=== PATIENT | female | born 1960 | race American Indian/Alaskan Native ===

== ENCOUNTER 2019-07-01 11:35 | Emergency (ER) | payer OTHER ==
--- NOTE | 2019-07-01 11:55 | Event Note ---
ED Screening Note ED Screening Note: left knee pain states she feels swelling behind the left knee states the pain goes down the left leg PMHx asthma no allergies to meds no recent travel no recent surgery no CP or SOB no hormone use former smoker This initial assessment/diagnostic orders/clinical plan/treatment(s) is/are subject to change based on patients health status, clinical progression and re- assessment by fellow clinical providers in the ED. Further treatment and workup at subsequent clinical providers discretion. Patient/guardian urged not to elope from the ED as their condition may be serious if not clinically assessed and managed. Initial orders include: XR of the left knee, US of the LLE
[2019-07-01 11:57] VITALS: BP 166/78
--- NOTE | 2019-07-01 13:24 | Emergency Department Report ---
ED Lower Extremity HPI - General Chief Complaint: Extremity Problem,Nontraumatic Stated Complaint: KNEE PAIN Time Seen by Provider: 07/01/19 11:53 Source: patient Mode of arrival: Ambulatory Limitations: No Limitations - History of Present Illness Initial Comments: This is a 59-year-old -[place] female who presents to the emergency room with left knee pain for 3 months worsening over the past week. Past medical history of arthritis and asthma. Patient states she is seeing her primary care doctor for similar symptoms and waiting on a referral to pain management. States follow-up appointment is next month but cannot wait the next month due to severe pain and swelling to posterior knee. She reports pain is radiating from left knee to left calf. She denies recent travel, recent injury, paresthesia, or weakness. MD Complaint: knee injury (left knee), leg injury (left leg) Onset/Timin -: week(s) Injury: Knee: Left Type of Injury: unknown Place: home Severity: severe Severity scale (0 -10): 10 Improves With: NSAID Worsens With: movement Associated Symptoms: swelling, ambulatory. denies: snap/pop sensation, numbness, tingling Treatments Prior to Arrival: NSAIDS - Related Data Previous Rx's Medication Instructions Recorded Last Taken Type traMADoL [Ultram 50 MG tab] 50 mg PO Q6HR PRN #12 tablet 07/01/19 Unknown Rx Allergies Allergy/AdvReac Type Severity Reaction Status Date / Time No Known Allergies Allergy Unverified 07/01/19 11:45 ED Review of Systems ROS: Stated complaint: KNEE PAIN Other details as noted in HPI Constitutional: denies: chills, fever Respiratory: denies: cough, shortness of breath, wheezing Cardiovascular: denies: chest pain, palpitations Gastrointestinal: denies: abdominal pain, nausea, diarrhea Musculoskeletal: joint swelling (Left knee), arthralgia (Left knee). denies: back pain Skin: denies: rash, lesions Neurological: denies: headache, weakness, paresthesias Psychiatric: denies: anxiety, depression ED Past Medical Hx - Past Medical History Previous Medical History?: Yes Hx Arthritis: Yes - Surgical History Past Surgical History?: Yes Additional Surgical History: Partial hysterectomy - Social History Smoking Status: Former Smoker Substance Use Type: None - Medications Home Medications: Home Medications Medication Instructions Recorded Confirmed Last Taken Type traMADoL [Ultram 50 MG tab] 50 mg PO Q6HR PRN #12 tablet 07/01/19 Unknown Rx ED Physical Exam - General Limitations: No Limitations General appearance: alert, in no apparent distress - Respiratory Respiratory exam: Present: normal lung sounds bilaterally. Absent: respiratory distress - Cardiovascular Cardiovascular Exam: Present: regular rate, normal rhythm. Absent: systolic murmur, diastolic murmur, rubs, gallop - GI/Abdominal GI/Abdominal exam: Present: soft, normal bowel sounds - Extremities Exam Extremities exam: Present: normal inspection - Expanded Lower Extremity Exam Left Hip exam: Present: normal inspection, full ROM Upper Leg exam: Present: normal inspection, full ROM Knee exam: Present: full ROM (Pain with range of motion), tenderness (Tenderness and swelling to posterior patella), swelling, full knee extension. Absent: abrasion, laceration, ecchymosis, deformity, crepidus, erythema, effusion, pain/laxity with varus Lower Leg exam: Present: normal inspection, full ROM Ankle exam: Present: normal inspection, full ROM Foot/Toe exam: Present: normal inspection, full ROM Neuro vascular tendon exam: Present: no vascular compromise Gait: Positive: observed and normal - Back Exam Back exam: Present: normal inspection - Neurological Exam Neurological exam: Present: alert, oriented X3, normal gait - Psychiatric Psychiatric exam: Present: normal affect, normal mood - Skin Skin exam: Present: warm, dry, intact, normal color. Absent: rash ED Course Vital Signs 07/01/19 11:54 Temperature 98.4 F Pulse Rate 68 Respiratory 18 Rate Blood Pressure 166/78 O2 Sat by Pulse 99 Oximetry ED Lower Extremity MDM - Radiology Data Radiology results: report reviewed XR of left Knee Impression: Mild medial compartment joint space narrowing is identified. No acute osseous findings or bone lesion. A moderate joint effusion extends to the suprapatellar bursa on the lateral view. Duplex Doppler of left lower extremity Impression: No sonographic evidence for DVT in left lower extremity. Popliteal cyst. - Medical Decision Making 59-year-old female complaining of left leg pain and swelling to posterior left knee. Patient is nontoxic appearing and stable. VSS. Workup: x-ray of left knee and duplex doppler of left lower extremity. Given history and exam there is low suspicion for fracture, dislocation, ligament injury, septic arthritis, or gout. X-ray findings of moderate joint effusion extends to the suprapatellar bursa. Duplex Doppler findings of no evidence of DVT, Popliteal cyst. He is to wrap applied to left knee. Start tramadol for pain. Advised to continue taking NSAIDs. Follow-up with PCP within the next week. Given strict return instructions. Patient discharged with prompt follow-up with primary care physician. Critical care attestation.: If time is entered above; I have spent that time in minutes in the direct care of this critically ill patient, excluding procedure time. ED Disposition Clinical Impression: Posterior left knee pain, Knee effusion, left Leg pain Qualifiers: Laterality: left Qualified Code(s): M79.605 - Pain in left leg Disposition: - TO HOME OR SELFCARE Is pt being admited?: No Condition: Stable Instructions: Arthralgia (ED), Osteoarthritis (ED), Knee Effusion (ED), RICE Therapy (ED) Additional Instructions: Continue taking ibuprofen or naproxen for pain. I have also provided additional pain medication for breakthrough pain. You will need to do rice therapy which include: Rest, Use ice or heat on affected area for 20 minutes and off for 2 hours. Follow up with Primary Care Provider in 2-3 days. Prescriptions: traMADoL [Ultram 50 MG tab] 50 mg PO Q6HR PRN #12 tablet PRN Reason: Pain Referrals: ARCHANA GILLIAM MD [Primary Care Provider] - 3-5 Days SARA MCWILLIAMS MD [Staff Physician] - 3-5 Days Forms: Work/School Release Form(ED) Time of Disposition: 14:08
--- NOTE | 2019-07-01 13:54 | XRay Report ---
LEFT KNEE 3 VIEWS INDICATION: left knee pain. COMPARISON: None. IMPRESSION: Normal bone mineralization. Mild medial compartment joint space narrowing is identified. No acute osseous findings or bone lesion. A moderate joint effusion extends to the suprapatellar bu rsa on the lateral view. Signer Name: Rik Inman Jr, MD Signed: 07/01/2019 1:49 PM Workstation Name: [id number]
--- NOTE | 2019-07-01 13:59 | Vascular Lab Report ---
DUPLEX DOPPLER LOWER EXTREMITY VEINS, LEFT INDICATION: left leg pain, leg swelling. TECHNIQUE: Duplex doppler imaging was performed through the veins of the left lower extremity using venous compression and other maneuvers. COMPARISON: No relevant prior imaging study available. FINDINGS: Left Common femoral vein: Negative. Left Superficial femoral vein: Negative. Left Popliteal vein: Negative. Left Calf veins: Negative. Additional findings: Moderate popliteal cyst is noted.. IMPRESSION: No sonographic evidence for DVT in the left lower extremity. Popliteal cyst. Signer Name: Rik Inman Jr, MD Signed: 07/01/2019 1:55 PM Workstation Name: [id number]
== END 2019-07-01 14:20 | disposition home or self-care (01) ==
LOC: ED 11:35
DX: M25.462 Effusion, left knee (principal); M79.605 Pain in left leg; J45.909 Unspecified asthma, uncomplicated; M19.90 Unspecified osteoarthritis, unspecified site; Z90.710 Acquired absence of both cervix and uterus; Z87.891 Personal history of nicotine dependence; Z79.899 Other long term (current) drug therapy
CPT/HCPCS: 99283